=== PATIENT | male | born 1985 | race Caucasian/White ===

== ENCOUNTER 2017-04-21 14:46 | Emergency (ER) | payer SELFPAY ==
[~2017-04-21] VITALS: Ht 182.9 cm; Wt 75.0 kg
[~2017-04-21 14:46] MED LIST: TOBR.3%O LEFT EYE
[2017-04-21 14:49] VITALS: BP 156/82; PULSE 88; RESP 16; TEMP 98.4; O2SAT 99
[2017-04-21] MEDS ORDERED: AZITHROMYCIN 250 MG TAB PO ONE (15:30)
[2017-04-21] MEDS ORDERED: cefTRIAXone 250 MG VIAL IM ONE (15:30)
[2017-04-21] MEDS ORDERED: LIDOCAINE HCL 1% 50 ML VIAL XX ONE (15:30)
--- NOTE | 2017-04-21 15:36 | PD ---
HPI Chief Complaint: Complaint Time Seen by Provider: 15:17 Travel History International Travel<30 days: No Contact w/Intl Traveler<30days: No Traveled to known affect area: No History of Present Illness HPI The patient is a 32-year-old male who presents to the emergency department for dysuria and penile discharge. The patient states he developed penile discharge 4 days ago, yellow in color, with discomfort upon urination. He denies any previous history of gonorrhea or chlamydia. He is sexually active with one partner, female, who states she has no symptoms according to the patient. He denies any arthralgias, myalgias, or rash. He does have a history of allergies to penicillin G, however, states he can take anything that ends in NINA. PFSH Past Medical History Blood Disorders: No Diminished Hearing: No Hypertension: Yes Psychiatric: Yes Integumentary: Yes (MRSA) Immunizations Current: Yes Past Surgical History Other Surgery: Yes (LIVER LACERATION REPAIR S/P TRAUMA) Social History Alcohol Use: Yes ("A LOT") Tobacco Use: Yes (1 PPD) Substance Use: Yes (ALCOHOL, BENZOS) Allergies-Medications (Allergen,Severity, Reaction): Coded Allergies: bee venom protein (honey bee) (Unverified Allergy, Severe, Swelling, 04/21) penicillin G (Unverified Allergy, Severe, Swelling, 04/21/17) Reported Meds & Prescriptions Reported Meds & Active Scripts Active Tobrex Opth Oint (Tobramycin Sulfate) 3.5 Gm Oint 1 Applic LEFT EYE BID Review of Systems General / Constitutional: No: Fever Gastrointestinal: No: Nausea, Vomiting, Abdominal Pain Genitourinary: Positive: Dysuria, Other (penile discharge) Musculoskeletal: No: Myalgias, Arthralgias Skin: No Rash Physical Exam Narrative GENERAL: Awake, alert, pleasant 32-year-old male who appears his stated age and is in no acute respiratory distress. SKIN: Focused skin assessment warm/dry. HEAD: Atraumatic. Normocephalic. EYES: No injection or drainage. GASTROINTESTINAL: Abdomen soft, non-tender, nondistended. No suprapubic tenderness. Genitourinary: Circumcised phallus. Visible yellow discharge at the meatus. Both testicles are descended. No tenderness of the testicles. MUSCULOSKELETAL: No obvious deformities. No clubbing. No cyanosis. No edema. NEUROLOGICAL: Awake and alert. No obvious cranial nerve deficits. Motor grossly within normal limits. Normal speech. PSYCHIATRIC: Appropriate mood and affect; insight and judgment normal. Data Data Last Documented VS Vital Signs Date Time Temp Pulse Resp B/P (MAP) Pulse Ox O2 Delivery O2 Flow Rate FiO2 04/21/17 14:49 98.4 88 16 156/82 (106) 99 Orders Orders Urinalysis - C+S If Indicated (04/21/17 15:17) Gc And Chlamydia Pcr (04/21/17 15:17) Azithromycin (Zithromax) (04/21/17 15:30) Ceftriaxone Inj (Rocephin Inj) (04/21/17 15:30) Lidocaine 1% Inj (50 Ml) (Xylocaine 1% I (04/21/17 15:30) Urine Culture (04/21/17 15:30) Labs Laboratory Tests Test 04/21/17 15:30 Urine Color YELLOW Urine Turbidity CLEAR Urine pH 8.0 Urine Specific Homer 1.018 Urine Protein TRACE mg/dL Urine Glucose (UA) NEG mg/dL Urine Ketones 10 mg/dL Urine Occult Blood NEG Urine Nitrite NEG Urine Bilirubin NEG Urine Urobilinogen 2.0 MG/DL Urine Leukocyte Esterase MOD Urine RBC 2 /hpf Urine WBC 75 /hpf Urine Mucus FEW /lpf Microscopic Urinalysis Comment CULTURE INDICATED MDM Medical Decision Making Medical Screen Exam Complete: Yes Emergency Medical Condition: Yes Medical Record Reviewed: Yes Interpretation(s) Laboratory Tests Test 04/21/17 15:30 Urine Color YELLOW Urine Turbidity CLEAR Urine pH 8.0 Urine Specific Homer 1.018 Urine Protein TRACE mg/dL Urine Glucose (UA) NEG mg/dL Urine Ketones 10 mg/dL Urine Occult Blood NEG Urine Nitrite NEG Urine Bilirubin NEG Urine Urobilinogen 2.0 MG/DL Urine Leukocyte Esterase MOD Urine RBC 2 /hpf Urine WBC 75 /hpf Urine Mucus FEW /lpf Microscopic Urinalysis Comment CULTURE INDICATED Differential Diagnosis Differential diagnosis includes urethritis, gonorrhea, chlamydia, STI, complicated UTI. Narrative Course UA was sent to lab with gonorrhea/chlamydia PCR. The patient was administered Rocephin 250 mg IM and Zithromax 1 g by mouth and was monitored in the emergency department for any possibility of allergic reaction secondary to a history of penicillin G. Patient had no reaction. UA is positive with 75 WBCs , this may be gonorrhea versus chlamydia versus other underlying infection. Gonorrhea and chlamydia are pending. The patient did receive Rocephin and Zithromax. He will be discharged home on Cipro 500 mg twice a day for one week. He is advised to follow-up with the [facility] for testing in regards to syphilis and HIV. Diagnosis Primary Impression: Urethritis Additional Impression: UTI (urinary tract infection) Qualified Codes: N30.00 - Acute cystitis without hematuria Patient Instructions: General Instructions Additional Instructions: Follow-up with the [facility] for testing in regards to syphilis and HIV. Medications as directed. Have your sexual partner treated. Med/Other Pt SpecificInfo: Prescription(s) given Scripts Ciprofloxacin (Cipro) 500 Mg Tab 500 MG PO BID for Infection for 7 Days, #14 TAB 0 Refills Prov: Pete Hayward MD 04/21/17 Disposition: DISCHARGE HOME Condition: Stable Pete Hayward MD Apr 21, 2017 15:36
[2017-04-21 16:05] LABS: BILIRUBIN, URINE NEG (NEG); BLOOD, URINE NEG (NEG); GLUCOSE,URINE NEG (NEG); KETONE, URINE 10 mg/dL (NEG); MUCUS URINE FEW /lpf (OCC); NITRITE,URINE NEG (NEG); URINE COLOR YELLOW (YELLW/STRAW); URINE LEUKOCYTE ESTERASE MOD (NEG)
[2017-04-21] MEDS ORDERED: CIPR-9 PO (16:23)
== END 2017-04-21 16:36 | disposition home or self-care (01) ==
LOC: NEPD 14:46
DX: A54.01 Gonococcal cystitis and urethritis, unspecified (principal); F17.200 Nicotine dependence, unspecified, uncomplicated
CPT/HCPCS: 81001; 87086; 87185; 87491; 87591; 96372; 99284; J0696

== ENCOUNTER 2017-06-02 15:31 | Emergency (ER) | payer SELFPAY ==
[~2017-06-02] VITALS: Ht 182.9 cm; Wt 69.0 kg
[~2017-06-02 15:31] MED LIST changes: +CIPR-9 PO
[2017-06-02 15:35] VITALS: BP 152/84; PULSE 99; RESP 16; TEMP 98.1; O2SAT 97
== END 2017-06-02 17:25 | disposition left against medical advice (07) ==
LOC: PHED 15:31 → PHEFT 17:25
DX: Z53.21 Procedure and treatment not carried out due to patient leaving prior to being seen by health care provider (principal)
CPT/HCPCS: 99281

== ENCOUNTER 2017-09-02 17:17 | Emergency (ER) | payer OTHER ==
[~2017-09-02] VITALS: Ht 185.4 cm; Wt 82.0 kg
[2017-09-02 17:22] VITALS: BP 130/72; PULSE 98; RESP 16; TEMP 98.2
[2017-09-02 18:08] LABS: BASOPHIL # 0.1 TH/MM3 (0-0.2); BASOPHIL % 1.2 % (0.0-2.0); EOSINOPHIL # 0.5 TH/MM3 (0-0.4); HEMOGLOBIN 17.3 GM/DL (13.0-17.0); LYMPH % 31.6 % (9.0-44.0); LYMPHOCYTE # 2.9 TH/MM3 (1.0-4.8); MEAN CELL VOLUME 103.2 FL (80.0-100.0); MEAN CORPUSCULAR HEMOGLOBIN 37.2 PG (27.0-34.0); MEAN PLATELET VOLUME 9.7 FL (7.0-11.0); MONOCYTE # 0.6 TH/MM3 (0-0.9); NEUT % 55.2 % (16.0-70.0); PLATELET COUNT 200 TH/MM3 (150-450); RED BLOOD COUNT 4.65 MIL/MM3 (4.50-5.90); RED CELL DISTRIBUTION WIDTH 12.9 % (11.6-17.2); WHITE BLOOD COUNT 9.1 TH/MM3 (4.0-11.0)
[2017-09-02 18:13] LABS: MEAN CORPUSCULAR HGB CONC 36.1 % (32.0-36.0)
[2017-09-02] MEDS ORDERED: LORazepam 2 MG TAB PO ONE (18:15)
[2017-09-02 18:32] LABS: ALT (GPT) 64 U/L (12-78)
[2017-09-02 18:35] LABS: ALBUMIN 4.2 GM/DL (3.4-5.0); AST (GOT) 94 U/L (15-37); BICARBONATE 30.3 MEQ/L (21.0-32.0); BLOOD UREA NITROGEN 8 MG/DL (7-18); CHLORIDE 105 MEQ/L (98-107); CREATININE 1.31 MG/DL (0.60-1.30); GLOMERULAR FILTRATION RATE 64 ML/MIN (>89); GLUCOSE,RANDOM 109 MG/DL (74-106); SODIUM (NA) 143 MEQ/L (136-145)
[2017-09-02 18:41] LABS: ALKALINE PHOSPHATASE 99 U/L (45-117); TOTAL BILIRUBIN ADULT 0.6 MG/DL (0.2-1.0); TOTAL PROTEIN 8.5 GM/DL (6.4-8.2)
--- NOTE | 2017-09-02 18:48 | PD ---
HPI Chief Complaint: Psychiatric Symptoms Time Seen by Provider: 17:55 Travel History International Travel<30 days: No Contact w/Intl Traveler<30days: No Traveled to known affect area: No History of Present Illness HPI 32-year-old male that presents to the ED for evaluation of Mason act. Patient was Mason acted by police after apparently he made suicidal statements to his family as well as homicidal statements stating that he was going to shoot his sister and [id number] secondary to his mother having only 2 weeks to live. Per patient is currently undergoing a lot of stresses secondary to his mother having throat cancer and being told that she apparently has 2 weeks to live. Per patient he does not know how to handle this situation and this is what is causing all his symptoms. On my exam he is not very forthcoming with information. Denies any chest pain or shortness of breath. Denies any urinary or bowel movement issues. States drinking alcohol today. Denies any other substance abuse. He denies any history of depression or anxiety. She was brought here by police secondary to this homicidal threats. Apparently patient had to be "wrestle" by police as he went home on his own. He denies any headache or any other symptoms. He does have some bruises to the right side of his head as well as to his chest and legs. Symptoms appear to have worsened the past couple of days. PFSH Past Medical History Blood Disorders: No Diminished Hearing: No Hypertension: Yes Psychiatric: Yes Integumentary: Yes (MRSA) Immunizations Current: Yes ?: Not Past Surgical History Other Surgery: Yes (LIVER LACERATION REPAIR S/P TRAUMA) Social History Alcohol Use: Yes (ETOH ) Tobacco Use: Yes (1 PPD) Substance Use: Yes (IV DRUG USE IN PAST) Allergies-Medications (Allergen,Severity, Reaction): Coded Allergies: bee venom protein (honey bee) (Unverified Allergy, Severe, Swelling, 04/21) penicillin G (Unverified Allergy, Severe, Swelling, 04/21/17) Reported Meds & Prescriptions Reported Meds & Active Scripts Active Cipro (Ciprofloxacin HCl) 500 Mg Tab 500 Mg PO BID 7 Days Tobrex Opth Oint (Tobramycin Sulfate) 3.5 Gm Oint 1 Applic LEFT EYE BID Review of Systems Except as stated in HPI: all other systems reviewed are Neg Physical Exam Narrative GENERAL: SKIN: Warm and dry. HEAD: Atraumatic. Normocephalic. Patient has some versus to the right side of the head as well as to the chest and pelvic area. No obvious bony deformity noted. No lumbar, thoracic and cervical spine tenderness to palpation. EYES: Pupils equal and round. No scleral icterus. No injection or drainage. ENT: No nasal bleeding or discharge. Mucous membranes pink and moist. Tongue is midline. No uvula deviation. NECK: Trachea midline. No JVD. CARDIOVASCULAR: Regular rate and rhythm. No murmurs, S3, S4. RESPIRATORY: No accessory muscle use. Clear to auscultation. Breath sounds equal bilaterally. GASTROINTESTINAL: Abdomen soft, non-tender, nondistended. Hepatic and splenic margins not palpable. MUSCULOSKELETAL: Extremities without clubbing, cyanosis, or edema. No obvious deformities. Full range of motion of the upper and lower extremities bilaterally. 2+ pulses bilaterally. NEUROLOGICAL: Awake and alert. No obvious cranial nerve deficits. Motor grossly within normal limits. Five out of 5 muscle strength in the arms and legs. Normal speech. PSYCHIATRIC: Depressive mood and affect; insight and judgment normal. Data Data Last Documented VS Vital Signs Date Time Temp Pulse Resp B/P (MAP) Pulse Ox O2 Delivery O2 Flow Rate FiO2 09/02/17 17:22 98.2 98 16 130/72 (91) Orders Orders Complete Blood Count With Diff (09/02/17 17:53) Comprehensive Metabolic Panel (09/02/17 17:53) Thyroid Stimulating Hormone (09/02/17 17:53) Psych Screen (09/02/17 17:53) Drug Screen, Random Urine (09/02/17 17:53) Alcohol (Ethanol) (09/02/17 17:53) Lorazepam (Ativan) (09/02/17 18:15) Labs Laboratory Tests Test 09/02/17 17:50 White Blood Count 9.1 TH/MM3 Red Blood Count 4.65 MIL/MM3 Hemoglobin 17.3 GM/DL Hematocrit 48.0 % Mean Corpuscular Volume 103.2 FL Mean Corpuscular Hemoglobin 37.2 PG Mean Corpuscular Hemoglobin Concent 36.1 % Red Cell Distribution Width 12.9 % Platelet Count 200 TH/MM3 Mean Platelet Volume 9.7 FL Neutrophils (%) (Auto) 55.2 % Lymphocytes (%) (Auto) 31.6 % Monocytes (%) (Auto) 7.0 % Eosinophils (%) (Auto) 5.0 % Basophils (%) (Auto) 1.2 % Neutrophils # (Auto) 5.0 TH/MM3 Lymphocytes # (Auto) 2.9 TH/MM3 Monocytes # (Auto) 0.6 TH/MM3 Eosinophils # (Auto) 0.5 TH/MM3 Basophils # (Auto) 0.1 TH/MM3 CBC Comment AUTO DIFF Alanine Aminotransferase (ALT/SGPT) 64 U/L Urine Opiates Screen NEG Urine Barbiturates Screen NEG Urine Amphetamines Screen NEG Urine Benzodiazepines Screen NEG Urine Cocaine Screen NEG Urine Cannabinoids Screen NEG MDM Medical Decision Making Medical Screen Exam Complete: Yes Emergency Medical Condition: Yes Medical Record Reviewed: Yes Interpretation(s) CBC & BMP Diagram 09/02/17 17:50 Alanine Aminotransferase (ALT/SGPT) 64 Differential Diagnosis Depression versus suicidal ideation versus anxiety versus adjustment disorder versus mood disorder versus bipolar disorder versus schizophrenia versus paranoid disorder versus psychosis versus substance abuse versus alcohol abuse versus alcohol induced psychosis versus homicidality addition versus cutting versus personality disorder Narrative Course 32-year-old male that presents to the ED for evaluation of psych. Patient was properly examined and was found to have signs and symptoms consistent with psychiatric illness. Significant medical distress. Patient was medically clear. Okay to be seen by psych. Mental health screening was discussed with the patient. Diagnosis Primary Impression: Adjustment disorder Qualified Codes: F43.20 - Adjustment disorder, unspecified Bobby Perales Sep 02, 2017 18:48
[2017-09-02] MEDS ORDERED: LORazepam 2 MG TAB PO PRN (19:00)
[2017-09-02] MEDS ORDERED: ONDANSETRON ODT 4 MG TAB PO PRN (19:00)
[2017-09-02] MEDS ORDERED: FLUMAZENIL 0.5 MG/5 ML VIAL IV PUSH PRN (19:00)
[2017-09-02] MEDS ORDERED: LORazepam 2 MG/ML VIAL IV PUSH PRN ×4 (19:00)
[2017-09-02] MEDS ORDERED: LORazepam 1 MG TAB PO PRN (19:00)
[2017-09-02] MEDS ORDERED: ACETAMINOPHEN 325 MG TAB PO PRN (19:00)
--- NOTE | 2017-09-02 23:40 | PD ---
Physical Exam Time Seen by Provider: 23:39 Data Data Last Documented VS Vital Signs Date Time Temp Pulse Resp B/P (MAP) Pulse Ox O2 Delivery O2 Flow Rate FiO2 09/02/17 17:22 98.2 98 16 130/72 (91) Orders Orders Complete Blood Count With Diff (09/02/17 17:53) Comprehensive Metabolic Panel (09/02/17 17:53) Thyroid Stimulating Hormone (09/02/17 17:53) Psych Screen (09/02/17 17:53) Drug Screen, Random Urine (09/02/17 17:53) Alcohol (Ethanol) (09/02/17 17:53) Lorazepam (Ativan) (09/02/17 18:15) Alcohol Withdrawal Asmt-Ciwa ONCE (09/02/17 18:48) Ondansetron Odt (Zofran Odt) (09/02/17 19:00) Acetaminophen (Tylenol) (09/02/17 19:00) Flumazenil Inj (Romazicon Inj) (09/02/17 19:00) Lorazepam (Ativan) (09/02/17 19:00) Lorazepam Inj (Ativan Inj) (09/02/17 19:00) Lorazepam (Ativan) (09/02/17 19:00) Lorazepam Inj (Ativan Inj) (09/02/17 19:00) Lorazepam Inj (Ativan Inj) (09/02/17 19:00) Lorazepam Inj (Ativan Inj) (09/02/17 19:00) Ed Discharge Order (09/02/17 23:38) Labs Laboratory Tests Test 09/02/17 17:50 White Blood Count 9.1 TH/MM3 Red Blood Count 4.65 MIL/MM3 Hemoglobin 17.3 GM/DL Hematocrit 48.0 % Mean Corpuscular Volume 103.2 FL Mean Corpuscular Hemoglobin 37.2 PG Mean Corpuscular Hemoglobin Concent 36.1 % Red Cell Distribution Width 12.9 % Platelet Count 200 TH/MM3 Mean Platelet Volume 9.7 FL Neutrophils (%) (Auto) 55.2 % Lymphocytes (%) (Auto) 31.6 % Monocytes (%) (Auto) 7.0 % Eosinophils (%) (Auto) 5.0 % Basophils (%) (Auto) 1.2 % Neutrophils # (Auto) 5.0 TH/MM3 Lymphocytes # (Auto) 2.9 TH/MM3 Monocytes # (Auto) 0.6 TH/MM3 Eosinophils # (Auto) 0.5 TH/MM3 Basophils # (Auto) 0.1 TH/MM3 CBC Comment AUTO DIFF Differential Comment AUTO DIFF CONFIRMED Blood Urea Nitrogen 8 MG/DL Creatinine 1.31 MG/DL Random Glucose 109 MG/DL Total Protein 8.5 GM/DL Albumin 4.2 GM/DL Calcium Level 9.0 MG/DL Alkaline Phosphatase 99 U/L Aspartate Amino Transf (AST/SGOT) 94 U/L Alanine Aminotransferase (ALT/SGPT) 64 U/L Total Bilirubin 0.6 MG/DL Sodium Level 143 MEQ/L Potassium Level 4.4 MEQ/L Chloride Level 105 MEQ/L Carbon Dioxide Level 30.3 MEQ/L Anion Gap 8 MEQ/L Estimat Glomerular Filtration Rate 64 ML/MIN Thyroid Stimulating Hormone 3rd Gen 0.107 uIU/ML Urine Opiates Screen NEG Urine Barbiturates Screen NEG Urine Amphetamines Screen NEG Urine Benzodiazepines Screen NEG Urine Cocaine Screen NEG Urine Cannabinoids Screen NEG Ethyl Alcohol Level 289 MG/DL [facility] Medical Record Reviewed: Yes Supervised Visit with CHLOÉ: No Diagnosis Primary Impression: Adjustment disorder Qualified Codes: F43.20 - Adjustment disorder, unspecified Patient Instructions: General Instructions Departure Forms: Tests/Procedures Additional Instruction: TO ACT/SMA FOR FOLLOW-UP CARE/TREATMENT Disposition: 65 DISC TO PSYCH CARE FACILITY Condition: Stable GoldenYasmine hood LIZETH Sep 02, 2017 23:40
== END 2017-09-02 23:01 ==
LOC: NEPJ 17:17
DX: F43.20 Adjustment disorder, unspecified (principal); I10 Essential (primary) hypertension; F17.200 Nicotine dependence, unspecified, uncomplicated; Z88.0 Allergy status to penicillin; Z79.899 Other long term (current) drug therapy
CPT/HCPCS: 80053; 80307; 84443; 85025; 99283

== ENCOUNTER 2017-09-15 15:11 | Emergency (ER) | payer SELFPAY ==
[2017-09-15 15:26] VITALS: BP 138/71; PULSE 84; RESP 18; TEMP 98.1; O2SAT 96
--- NOTE | 2017-09-15 15:31 | PD ---
HPI Chief Complaint: Alcohol/Drug Intoxication Time Seen by Provider: 15:21 Travel History International Travel<30 days: No Contact w/Intl Traveler<30days: No Traveled to known affect area: No History of Present Illness HPI 32-year-old male with history of adjustment reaction disorder, alcoholism, polysubstance abuse, presents emergency department voluntarily for psychiatric evaluation. Patient has been drinking alcohol all day. He last used substances 4 hours ago. States he has been depressed since his mother . States he is having suicidal thoughts. He does not want to discuss the plan. Patient has no other symptoms to report at this time. PFSH Past Medical History Blood Disorders: No Anxiety: Yes Depression: Yes Diminished Hearing: No Hypertension: Yes Psychiatric: Yes Integumentary: Yes (MRSA) Immunizations Current: Yes Past Surgical History Other Surgery: Yes (LIVER LACERATION REPAIR S/P TRAUMA) Social History Alcohol Use: Yes (ETOH ) Tobacco Use: Yes (1 PPD) Substance Use: Yes (IV DRUG USE IN PAST) Allergies-Medications (Allergen,Severity, Reaction): Coded Allergies: bee venom protein (honey bee) (Unverified Allergy, Severe, Swelling, 04/21) penicillin G (Unverified Allergy, Severe, Swelling, 04/21/17) Reported Meds & Prescriptions Reported Meds & Active Scripts Active Review of Systems Except as stated in HPI: all other systems reviewed are Neg Physical Exam Narrative GENERAL: Well-nourished male patient, ambulatory and in no acute distress SKIN: Focused skin assessment warm/dry. HEAD: Atraumatic. Normocephalic. EYES: Pupils equal and round. Bilateral scleral icterus. No injection or drainage. EOMI ENT: No nasal bleeding or discharge. Mucous membranes pink and moist. NECK: Trachea midline. No JVD. CARDIOVASCULAR: Regular rate and rhythm. No murmur appreciated. RESPIRATORY: No accessory muscle use. Clear to auscultation. Breath sounds equal bilaterally. GASTROINTESTINAL: Abdomen soft, non-tender, nondistended. Hepatic and splenic margins not palpable. MUSCULOSKELETAL: No obvious deformities. No clubbing. No cyanosis. No edema. NEUROLOGICAL: Awake and alert. No obvious cranial nerve deficits. Motor grossly within normal limits. Normal speech. PSYCHIATRIC: Insight and judgment questionable. Data Data Last Documented VS Vital Signs Date Time Temp Pulse Resp B/P (MAP) Pulse Ox O2 Delivery O2 Flow Rate FiO2 5/12/18 15:32 84 18 138/71 (93) 96 Room Air 09/15/17 15:26 98.1 Orders Orders Complete Blood Count With Diff (09/15/17 15:31) Thyroid Stimulating Hormone (09/15/17 15:31) Basic Metabolic Panel (Bmp) (09/15/17 15:31) Psych Screen (09/15/17 15:31) Drug Screen, Random Urine (09/15/17 15:31) Alcohol (Ethanol) (09/15/17 15:31) MDM Medical Decision Making Medical Screen Exam Complete: Yes Emergency Medical Condition: Yes Medical Record Reviewed: Yes Differential Diagnosis Mood disorder versus personality disorder versus adjustment reaction disorder versus polysubstance abuse Narrative Course 32-year-old male presents emergency department voluntarily for psychiatric evaluation. Patient appears without distress. Vital signs are stable. Lab work is ordered for medical clearance. Pending no acute lab abnormality, patient is medically cleared to undergo psychiatric screening for further evaluation and disposition. Mental health screening discussed with the patient. Psychiatric screen ordered. Diagnosis Primary Impression: Alcohol use disorder, moderate, dependence Additional Impression: Adjustment disorder Qualified Codes: F43.21 - Adjustment disorder with depressed mood Condition: Stable Yasmine Golden September 15, 2017 15:31
[2017-09-15 15:32] VITALS: BP 138/71; PULSE 84; RESP 18; O2SAT 96
[2017-09-15] MEDS ORDERED: LORazepam 2 MG/ML VIAL IM ONE (16:30)
[2017-09-15] MEDS ORDERED: HALOPERIDOL LACTATE 5 MG/ML AMP IM ONE (16:30)
[2017-09-15 16:39] LABS: AUTOMATED NEUTROPHIL # 4.3 TH/MM3 (1.8-7.7); BASOPHIL # 0.1 TH/MM3 (0-0.2); BASOPHIL % 1.1 % (0.0-2.0); EOSINOPHIL # 0.3 TH/MM3 (0-0.4); EOSINOPHIL % 3.7 % (0.0-4.0); HEMATOCRIT 43.1 % (39.0-51.0); HEMOGLOBIN 15.1 GM/DL (13.0-17.0); LYMPH % 39.8 % (9.0-44.0); LYMPHOCYTE # 3.5 TH/MM3 (1.0-4.8); MEAN CELL VOLUME 102.4 FL (80.0-100.0); MEAN CORPUSCULAR HEMOGLOBIN 35.9 PG (27.0-34.0); MEAN PLATELET VOLUME 10.2 FL (7.0-11.0); MONO % 6.1 % (0.0-8.0); MONOCYTE # 0.5 TH/MM3 (0-0.9); NEUT % 49.3 % (16.0-70.0); PLATELET COUNT 188 TH/MM3 (150-450); RED CELL DISTRIBUTION WIDTH 12.6 % (11.6-17.2); WHITE BLOOD COUNT 8.7 TH/MM3 (4.0-11.0)
--- NOTE | 2017-09-15 16:45 | PD ---
Data Data Last Documented VS Vital Signs Date Time Temp Pulse Resp B/P (MAP) Pulse Ox O2 Delivery O2 Flow Rate FiO2 09/15/17 15:32 84 18 138/71 (93) 96 Room Air 09/15/17 15:26 98.1 Orders Orders Complete Blood Count With Diff (09/15/17 15:31) Thyroid Stimulating Hormone (09/15/17 15:31) Basic Metabolic Panel (Bmp) (09/15/17 15:31) Psych Screen (09/15/17 15:31) Drug Screen, Random Urine (09/15/17 15:31) Alcohol (Ethanol) (09/15/17 15:31) Haloperidol Inj (Haldol Inj) (09/15/17 16:30) Lorazepam Inj (Ativan Inj) (09/15/17 16:30) Restraints Non-Violent PAM.Q3H (09/15/17 16:30) Labs Laboratory Tests Test 09/15/17 15:40 09/15/17 16:15 White Blood Count 8.7 TH/MM3 Red Blood Count 4.20 MIL/MM3 Hemoglobin 15.1 GM/DL Hematocrit 43.1 % Mean Corpuscular Volume 102.4 FL Mean Corpuscular Hemoglobin 35.9 PG Mean Corpuscular Hemoglobin Concent 35.0 % Red Cell Distribution Width 12.6 % Platelet Count 188 TH/MM3 Mean Platelet Volume 10.2 FL Neutrophils (%) (Auto) 49.3 % Lymphocytes (%) (Auto) 39.8 % Monocytes (%) (Auto) 6.1 % Eosinophils (%) (Auto) 3.7 % Basophils (%) (Auto) 1.1 % Neutrophils # (Auto) 4.3 TH/MM3 Lymphocytes # (Auto) 3.5 TH/MM3 Monocytes # (Auto) 0.5 TH/MM3 Eosinophils # (Auto) 0.3 TH/MM3 Basophils # (Auto) 0.1 TH/MM3 CBC Comment DIFF FINAL Differential Comment MDM Supervised Visit with CHLOÉ: Yes Narrative Course I, Dr. Voss, have reviewed the advance practice practitioner's documentation and am in agreement, met with the patient face to face, made the diagnosis, and the medical decision making was done by me. *My assessment and Findings: Patient is difficult to manage. He is uncooperative and wandering around. He will not stay in his room. He has been drinking alcohol all day per his own report. History of polysubstance abuse. Lab studies have been ordered. I suspect he will require restraints for his own safety, whether chemical or physical to be determined. Diagnosis Primary Impression: Alcohol use disorder, moderate, dependence Additional Impression: Adjustment disorder Qualified Codes: F43.21 - Adjustment disorder with depressed mood Condition: Diego Marin MD September 15, 2017 16:45
[2017-09-15 17:08] LABS: BICARBONATE 28.8 MEQ/L (21.0-32.0); CALCIUM 8.5 MG/DL (8.5-10.1); CREATININE 1.2 MG/DL (0.60-1.30)
--- NOTE | 2017-09-15 17:44 | PD ---
Physical Exam Date Seen by Provider: September 15, 2017 Time Seen by Provider: 16:35 Narrative GENERAL: This is a well-nourished, well-developed patient, in no apparent distress.Patient smells of EtOH appears intoxicated. SKIN: No rashes, ecchymoses or lesions. Warm and dry. HEAD: Atraumatic. Normocephalic. EYES: PERRL, EOMI, no discharge or injection. No scleral icterus. EARS: Clear NOSE: Nasal turbinates appear normal. THROAT: Mucosa pink and moist. Airway patent. NECK: Trachea midline. supple, moves head freely. LUNGS: Clear to auscultation. CV: Regular in rhythm. ABDOMEN: Soft nontender. EXT: No clubbing cyanosis or edema. Data Data Last Documented VS Vital Signs Date Time Temp Pulse Resp B/P (MAP) Pulse Ox O2 Delivery O2 Flow Rate FiO2 09/15/17 19:24 70 100 Room Air 09/15/17 19:21 16 96/52 (67) 2.00 09/15/17 15:26 98.1 Orders Orders Complete Blood Count With Diff (09/15/17 15:31) Thyroid Stimulating Hormone (09/15/17 15:31) Basic Metabolic Panel (Bmp) (09/15/17 15:31) Psych Screen (09/15/17 15:31) Drug Screen, Random Urine (09/15/17 15:31) Alcohol (Ethanol) (09/15/17 15:31) Haloperidol Inj (Haldol Inj) (09/15/17 16:30) Lorazepam Inj (Ativan Inj) (09/15/17 16:30) Restraints Non-Violent PAM.Q3H (09/15/17 16:30) Labs Laboratory Tests Test 09/15/17 15:40 09/15/17 16:15 White Blood Count 8.7 TH/MM3 Red Blood Count 4.20 MIL/MM3 Hemoglobin 15.1 GM/DL Hematocrit 43.1 % Mean Corpuscular Volume 102.4 FL Mean Corpuscular Hemoglobin 35.9 PG Mean Corpuscular Hemoglobin Concent 35.0 % Red Cell Distribution Width 12.6 % Platelet Count 188 TH/MM3 Mean Platelet Volume 10.2 FL Neutrophils (%) (Auto) 49.3 % Lymphocytes (%) (Auto) 39.8 % Monocytes (%) (Auto) 6.1 % Eosinophils (%) (Auto) 3.7 % Basophils (%) (Auto) 1.1 % Neutrophils # (Auto) 4.3 TH/MM3 Lymphocytes # (Auto) 3.5 TH/MM3 Monocytes # (Auto) 0.5 TH/MM3 Eosinophils # (Auto) 0.3 TH/MM3 Basophils # (Auto) 0.1 TH/MM3 CBC Comment DIFF FINAL Differential Comment Blood Urea Nitrogen 7 MG/DL Creatinine 1.20 MG/DL Random Glucose 80 MG/DL Calcium Level 8.5 MG/DL Sodium Level 147 MEQ/L Potassium Level 3.7 MEQ/L Chloride Level 109 MEQ/L Carbon Dioxide Level 28.8 MEQ/L Anion Gap 9 MEQ/L Estimat Glomerular Filtration Rate 71 ML/MIN Thyroid Stimulating Hormone 3rd Gen 0.254 uIU/ML Ethyl Alcohol Level 272 MG/DL Urine Opiates Screen NEG Urine Barbiturates Screen NEG Urine Amphetamines Screen NEG Urine Benzodiazepines Screen POS Urine Cocaine Screen POS Urine Cannabinoids Screen NEG MDM Medical Record Reviewed: Yes Supervised Visit with CHLOÉ: Yes Interpretation(s) Laboratory Tests Test 09/15/17 15:40 09/15/17 16:15 White Blood Count 8.7 TH/MM3 Red Blood Count 4.20 MIL/MM3 Hemoglobin 15.1 GM/DL Hematocrit 43.1 % Mean Corpuscular Volume 102.4 FL Mean Corpuscular Hemoglobin 35.9 PG Mean Corpuscular Hemoglobin Concent 35.0 % Red Cell Distribution Width 12.6 % Platelet Count 188 TH/MM3 Mean Platelet Volume 10.2 FL Neutrophils (%) (Auto) 49.3 % Lymphocytes (%) (Auto) 39.8 % Monocytes (%) (Auto) 6.1 % Eosinophils (%) (Auto) 3.7 % Basophils (%) (Auto) 1.1 % Neutrophils # (Auto) 4.3 TH/MM3 Lymphocytes # (Auto) 3.5 TH/MM3 Monocytes # (Auto) 0.5 TH/MM3 Eosinophils # (Auto) 0.3 TH/MM3 Basophils # (Auto) 0.1 TH/MM3 CBC Comment DIFF FINAL Differential Comment Blood Urea Nitrogen 7 MG/DL Creatinine 1.20 MG/DL Random Glucose 80 MG/DL Calcium Level 8.5 MG/DL Sodium Level 147 MEQ/L Potassium Level 3.7 MEQ/L Chloride Level 109 MEQ/L Carbon Dioxide Level 28.8 MEQ/L Anion Gap 9 MEQ/L Estimat Glomerular Filtration Rate 71 ML/MIN Thyroid Stimulating Hormone 3rd Gen 0.254 uIU/ML Ethyl Alcohol Level 272 MG/DL Urine Opiates Screen NEG Urine Barbiturates Screen NEG Urine Amphetamines Screen NEG Urine Benzodiazepines Screen POS Urine Cocaine Screen POS Urine Cannabinoids Screen NEG Differential Diagnosis MDM: High Differential diagnoses: Schizophrenia, schizoaffective disorder, bipolar, anxiety, depression, adjustment reaction, mood disorder NOS, ODD, depressive disorder NOS, psychosis NOS, substance induced mood disorder, infection, electrolyte abnormality, malingering. Narrative Course 1635 the patient has been a barrier to his care. He has been out of his room walking around into the patient care areas and will not stay in his room. He is becoming very intrusive and verbally abusive to the staff. There is concern that the patient has a risk to elope. Nonviolent restraints have been ordered. Patient was placed under a [place] act to ensure his safety while he is intoxicated. He had made suicidal statements earlier. The patient is given Haldol 10 mg and Ativan 2 mg IM. The patient will be allowed to sober up here in the ER and once he appears sober his Marchman act will be lifted and he will be reevaluated to determine if he needs psychiatric care. At 0300 the patient does continue with the patient is reexamined. Suicidal ideation. He has requested the see the psychiatrist. The patient has been medically cleared. Diagnosis Primary Impression: Alcohol use disorder, moderate, dependence Additional Impressions: Adjustment disorder Qualified Codes: F43.21 - Adjustment disorder with depressed mood Polysubstance abuse Condition: Stable Atif Rosas September 15, 2017 17:44
[2017-09-15 18:13] VITALS: BP 101/58; PULSE 72; RESP 16; O2SAT 100
[2017-09-15 19:21] VITALS: BP 96/52; PULSE 70; RESP 16; O2SAT 100
[2017-09-16 06:36] VITALS: BP 110/62; PULSE 56; RESP 18; TEMP 98.6; O2SAT 98
[2017-09-16] MEDS ORDERED: LORazepam 2 MG TAB PO PRN (18:00)
[2017-09-16] MEDS ORDERED: FLUMAZENIL 0.5 MG/5 ML VIAL IV PUSH PRN (18:00)
[2017-09-16] MEDS ORDERED: LORazepam 2 MG/ML VIAL IV PUSH PRN ×4 (18:00)
[2017-09-16] MEDS ORDERED: LORazepam 1 MG TAB PO PRN (18:00)
[2017-09-16 18:44] VITALS: BP 107/72; PULSE 74; RESP 18; TEMP 99; O2SAT 99
[2017-09-16 23:23] VITALS: BP 148/88; PULSE 60; RESP 18; TEMP 99.4; O2SAT 99
[2017-09-17 12:00] VITALS: BP 111/69; PULSE 89; RESP 18; TEMP 98.4; O2SAT 97
--- NOTE | 2017-09-17 16:30 | PD.PSY.CON ---
Provisional Diagnosis Admission Date [place] [facility]. Substance-induced altered mental status, alcohol intoxication, multiple drug abuse benzodiazepines, cocaine History of Present Illness Service Psychiatry Consult Requested By ED MD Reason for Consult Assessment Primary Care Physician Unknown HPI Patient is a 32-year-old male comes to the emergency department intoxicated with a blood alcohol level of 272 and urine toxicology positive for benzodiazepines and cocaine. Patient was assessed by the emergency department staff physician public aid eligibility assistant who filled out a physician's certificate related to patient's intoxication. At that time he also made vague suicidal ideation statements. Patient is been here over 28 hours. Asked to see patient now that he is sober. At the present time patient sitting quietly in his room and J pod nurse Shira present throughout session. Patient is alert oriented slender somewhat disheveled white male acknowledges being an alcoholic acknowledges daily drinking shoulder drinking history of blacking out and passing out. He was here a few weeks ago was sent to [facility] act detoxes therefore days and left. He resumed drinking within 2 days. He acknowledges multiple legal issues related to her drinking including DUIs and open containers. He denies any psychiatric contact except when on the detox unit denies psychotropic medications or psychiatric hospitalizations. He denies any suicidal homicidal ideation intent or plan denies any voices or visions. He states he was staying with family members though he was told to leave when he relapsed and was drinking. At the present time patient does not meet criteria for either Mason act or a physician's certificate thus I will cancel the physician certificate. We will allow the patient to be discharged to herself, no Rx by me, with a strong referral to AA, NA, and also to sober living facilities such as [facility] Review of Systems Except as stated in HPI: all other systems reviewed are Neg Past Family Social History Coded Allergies: bee venom protein (honey bee) (Unverified Allergy, Severe, Swelling, 04/21) penicillin G (Unverified Allergy, Severe, Swelling, 04/21/17) Current Medications Medications (Trade) Dose Ordered Sig/Kaci Route Start Time Stop Time Status Last Admin (Romazicon Inj) 0.2 mg Q1M PRN IV PUSH 09/16/17 18:00 (Ativan) 1 mg Q4H PRN PO 09/16/17 18:00 09/17/17 12:51 (Ativan Inj) 1 mg Q4H PRN IV PUSH 09/16/17 18:00 (Ativan) 2 mg Q2H PRN PO 09/16/17 18:00 (Ativan Inj) 2 mg Q2H PRN IV PUSH 09/16/17 18:00 (Ativan Inj) 2 mg Q1H PRN IV PUSH 09/16/17 18:00 (Ativan Inj) 2 mg Q15M PRN IV PUSH 09/16/17 18:00 Family Psych History Unknown at this time Social History Patient homeless Patient's Strengths (min. 2) Patient verbal able access healthcare Physical Exam Patient medically cleared ED exam reviewed and agreed with Vital Signs Vital Signs Date Time Temp Pulse Resp B/P (MAP) Pulse Ox O2 Delivery O2 Flow Rate FiO2 09/17/17 12:00 98.4 89 18 111/69 (83) 97 09/16/17 23:23 Room Air 09/15/17 19:21 2.00 Mental Status Examination Appearance: Disheveled Consciousness: Alert Orientation: x4 Motor Activity: Normal gait Speech: Unremarkable Language: Adequate Fund of Knowledge: Adequate Attention and Concentration: Adequate Memory: Unremarkable Mood: Other (Euthymic to mildly dysphoric) Affect: Other (Slight decreased range and intensity) Thought Process & Associations: Intact Thought Content: Appropriate, Thought blocking Hallucination Type: None Delusion Type: None Suicidal Ideation: No Suicidal Plan: No Suicidal Intention: No Homicidal Ideation: No Homicidal Plan: No Homicidal Intention: No Insight: Fair Judgment: Impulsive Assessment & Plan Problem List: (1) Substance induced mood disorder ICD Codes: F19.94 - Other psychoactive substance use, unspecified with psychoactive substance-induced mood disorder (2) Cocaine abuse ICD Codes: F14.10 - Cocaine abuse, uncomplicated (3) Benzodiazepine abuse ICD Codes: F13.10 - Sedative, hypnotic or anxiolytic abuse, uncomplicated Assessment & Plan Estimated LOS: days patient does not meet criteria for inpatient psychiatric stay. He was also detoxed. Thus I will cancel the physician's certificate. Patient be discharged from self, no Rx by me, referred to AA and NA, refer to sober living facilities Discharge Planning See above Request HC Surrog/Guard Advoc?: No Milton Quezada MD September 17, 2017 16:30
--- NOTE | 2017-09-17 16:31 | PD ---
Physical Exam Time Seen by Provider: 16:[address] Quezada has evaluated patient, lifted the Mason act and cleared the patient for discharge. Data Data Last Documented VS Vital Signs Date Time Temp Pulse Resp B/P (MAP) Pulse Ox O2 Delivery O2 Flow Rate FiO2 09/17/17 12:00 98.4 89 18 111/69 (83) 97 09/16/17 23:23 Room Air 09/15/17 19:21 2.00 Orders Orders Complete Blood Count With Diff (09/15/17 15:31) Thyroid Stimulating Hormone (09/15/17 15:31) Basic Metabolic Panel (Bmp) (09/15/17 15:31) Psych Screen (09/15/17 15:31) Drug Screen, Random Urine (09/15/17 15:31) Alcohol (Ethanol) (09/15/17 15:31) Haloperidol Inj (Haldol Inj) (09/15/17 16:30) Lorazepam Inj (Ativan Inj) (09/15/17 16:30) Restraints Non-Violent PAM.Q3H (09/15/17 16:30) Diet Regular Basic (09/16/17 Breakfast) Diet Regular Basic (09/16/17 Lunch) Diet Regular Basic (09/16/17 Dinner) Alcohol Withdrawal Asmt-Ciwa Q4HX18 (09/16/17 17:57) Flumazenil Inj (Romazicon Inj) (09/16/17 18:00) Lorazepam (Ativan) (09/16/17 18:00) Lorazepam Inj (Ativan Inj) (09/16/17 18:00) Lorazepam (Ativan) (09/16/17 18:00) Lorazepam Inj (Ativan Inj) (09/16/17 18:00) Lorazepam Inj (Ativan Inj) (09/16/17 18:00) Lorazepam Inj (Ativan Inj) (09/16/17 18:00) Diet Regular Basic (09/17/17 Breakfast) Diet Regular Basic (09/17/17 Lunch) Diet Regular Basic (09/17/17 Dinner) Labs Laboratory Tests Test 09/15/17 15:40 09/15/17 16:15 White Blood Count 8.7 TH/MM3 Red Blood Count 4.20 MIL/MM3 Hemoglobin 15.1 GM/DL Hematocrit 43.1 % Mean Corpuscular Volume 102.4 FL Mean Corpuscular Hemoglobin 35.9 PG Mean Corpuscular Hemoglobin Concent 35.0 % Red Cell Distribution Width 12.6 % Platelet Count 188 TH/MM3 Mean Platelet Volume 10.2 FL Neutrophils (%) (Auto) 49.3 % Lymphocytes (%) (Auto) 39.8 % Monocytes (%) (Auto) 6.1 % Eosinophils (%) (Auto) 3.7 % Basophils (%) (Auto) 1.1 % Neutrophils # (Auto) 4.3 TH/MM3 Lymphocytes # (Auto) 3.5 TH/MM3 Monocytes # (Auto) 0.5 TH/MM3 Eosinophils # (Auto) 0.3 TH/MM3 Basophils # (Auto) 0.1 TH/MM3 CBC Comment DIFF FINAL Differential Comment Blood Urea Nitrogen 7 MG/DL Creatinine 1.20 MG/DL Random Glucose 80 MG/DL Calcium Level 8.5 MG/DL Sodium Level 147 MEQ/L Potassium Level 3.7 MEQ/L Chloride Level 109 MEQ/L Carbon Dioxide Level 28.8 MEQ/L Anion Gap 9 MEQ/L Estimat Glomerular Filtration Rate 71 ML/MIN Thyroid Stimulating Hormone 3rd Gen 0.254 uIU/ML Ethyl Alcohol Level 272 MG/DL Urine Opiates Screen NEG Urine Barbiturates Screen NEG Urine Amphetamines Screen NEG Urine Benzodiazepines Screen POS Urine Cocaine Screen POS Urine Cannabinoids Screen NEG MDM Supervised Visit with CHLOÉ: No Narrative Course Dr. Quezada has evaluated patient, lifted the Mason act and cleared the patient for discharge. Patient contracts safety. Denies suicidal or homicidal ideations. Patient will be provided community resource packet to [facility]/ [facility] for follow-up. Has friends and family for support. Patient was medically cleared by alternate provider prior to psych screening. Patient has been evaluated by psychiatry and and is now cleared for discharge. Diagnosis Primary Impression: Alcohol use disorder, moderate, dependence Additional Impressions: Adjustment disorder Qualified Codes: F43.21 - Adjustment disorder with depressed mood Polysubstance abuse Referrals: [facility] (Out patient) [facility] Primary Care Physician Psychiatrist Sara [facility] Patient Instructions: Abuse of Alcohol (ED), Alcohol Dependence (ED), Alcohol Intoxication (ED), General Instructions, Polysubstance Abuse (ED) Additional Instruction: Rest. Increase fluids. Avoid alcohol. Avoid illegal substances. Follow-up with [facility] for detox. Do not operate a car or any heavy machinery under the influence of alcohol or drugs. Follow-up with a medical doctor this week. Return to the ER for emergencies Med/Other Pt SpecificInfo: No Change to Meds, No Meds Exist/No RX given Disposition: 01 DISCHARGE HOME Condition: Stable Adelaida Knowles September 17, 2017 16:31
== END 2017-09-17 17:13 | disposition home or self-care (01) ==
LOC: NEPD 15:11 → NEPJ 09-17 17:13
DX: F43.21 Adjustment disorder with depressed mood (principal); F10.229 Alcohol dependence with intoxication, unspecified; F19.90 Other psychoactive substance use, unspecified, uncomplicated; R45.851 Suicidal ideations; I10 Essential (primary) hypertension; Z72.0 Tobacco use
CPT/HCPCS: 80048; 80307; 84443; 85025; 96372; 99285; J1630; J2060